=== PATIENT | male | born 1955 | race Native Hawaiian/Other Pacific Islander ===

== ENCOUNTER 2020-12-14 10:38 | Inpatient (IN) | payer OTHER ==
[~2020-12-14] VITALS: Ht 167.6 cm; Wt 69.9 kg
--- NOTE | 2020-12-14 10:51 | NUR ---
Pt BIB [facility], reports pt has generalized weakness x 2 days. Pt c/o severe weakness, diarrhea loss of appitite and a slight cough x 2 days. Pt denies CP, SOB, n/v, no other complaints, no distress noted.
[2020-12-14] MEDS ORDERED: IV NORMAL SALINE 1000 ML BAG IV ONE (11:00)
[2020-12-14 11:48] LABS: BASOPHILS % (AUTO) 0.3 % (0.0-2.0); EOSINOPHILS % (AUTO) 0.2 % (0.0-7.0); HEMATOCRIT 43.6 % (36.7-47.1); HEMOGLOBIN 14.7 g/dL (12.5-16.3); LYMPHOCYTES # (AUTO) 0.5 K/uL (20.0-40.0); LYMPHOCYTES % (AUTO) 15.4 % (20.5-51.5); MEAN CORPUSCULAR HEMOGLOBIN 33.9 uug (23.8-33.4); MEAN CORPUSCULAR HGB CONC 34 g/dL (32.5-36.3); MEAN CORPUSCULAR VOLUME 100.9 fL (73.0-96.2); MONOCYTES # (AUTO) 0.5 K/uL (2.0-10.0); MONOCYTES % (AUTO) 13.5 % (0.0-11.0); NEUTROPHILS # (AUTO) 2.4 K/uL (1.8-8.9); NEUTROPHILS % (AUTO) 70.6 % (38.5-71.5); PLATELET COUNT (AUTO) 96 K/uL (152-348); RED BLOOD CELL COUNT(AUTO) 4.33 MIL/uL (4.06-5.63); WHITE BLOOD COUNT (AUTO) 3.4 K/uL (3.6-10.2)
[2020-12-14 11:53] LABS: BILIRUBIN,DIRECT 0.2 mg/dL (0.0-0.2); BILIRUBIN,TOTAL 0.6 mg/dL (0.2-1.0); TOTAL PROTEIN, SERUM 6.5 g/dL (6.4-8.2)
--- NOTE | 2020-12-14 11:59 | NUR ---
Pt is very hard on which to start an IV, 2 RN's & 5 attempts.
[2020-12-14 12:00] LABS: CREATININE 12.4 mg/dL (0.6-1.3)
[2020-12-14] MEDS ORDERED: PRAM0.253 PO (12:17)
[2020-12-14] MEDS ORDERED: LISI20TA30 PO (12:17)
[2020-12-14] MEDS ORDERED: SEVE800T8 PO (12:17)
[2020-12-14] MEDS ORDERED: LEVO125T8 PO (12:17)
[2020-12-14] MEDS ORDERED: AMLO10TA59 PO (12:17)
[2020-12-14] MEDS ORDERED: HYDR4TAB57 PO (12:17)
[2020-12-14] MEDS ORDERED: ATOR10TA PO (12:17)
[2020-12-14] MEDS ORDERED: GABA-532 PO (12:17)
[2020-12-14] MEDS ORDERED: CYAN-51 PO (12:17)
--- NOTE | 2020-12-14 12:42 | NUR ---
Dr Paul spoke to [facility]
--- NOTE | 2020-12-14 12:50 | NUR ---
Pt is Authorized by Sebastian BARAJAS, to be admitted to [facility]. DR Paul spoke to admitting Dr Mar. Pt to be admitted to [facility].
--- NOTE | 2020-12-14 13:14 | NUR ---
Pt sleeping in bed, no distress noted.
--- NOTE | 2020-12-14 15:12 | NUR ---
Called report to SANTHOS[facility] Maxwell
[2020-12-14] MEDS ORDERED: ONDANSETRON 4 MG/2 ML VIAL IV PRN (15:30)
[2020-12-14] MEDS ORDERED: ACETAMINOPHEN 325 MG TABLET PO PRN (15:30)
[2020-12-14] MEDS ORDERED: TEMAZEPAM 15 MG CAPSULE PO PRN (15:30)
[2020-12-14] MEDS ORDERED: HYDROMORPHONE HCL 2 MG TABLET PO PRN (15:30)
[2020-12-14 16:00] VITALS: BP 190/86
--- NOTE | 2020-12-14 16:45 | NUR ---
Received report from Niles, ER nurse. Transferred to 2nd floor at 1615. PT is in bed, awake AO X 4. No complain of pain noted at this time. No acute distress or SOB. Needs 1 person assist D/T weakness. PT is able to go the toilet. 1 loose BM noted. Returned PT back to bed with safety measures, call light within reach, bed low and lock.
[2020-12-14] MEDS ORDERED: SEVELAMER CARBONATE PO SCH (17:00)
[2020-12-14] MEDS ORDERED: LISINOPRIL 20 MG TABLET PO ONE (17:15)
[2020-12-14] MEDS ORDERED: SEVELAMER CARBONATE 800 MG TABLET PO ONE (18:00)
--- NOTE | 2020-12-14 18:30 | NUR ---
PT was seen by Dr. Santizo. Notified MD about increase HR 145. Administered Lisinopril per MD's order. Received new orders and nurse carried out. PT states no pain at this time. PT in bed with safety measures, call light within reach, bed low and lock. Will endorse to hospice art therapist nurse.
[2020-12-14 20:00] VITALS: BP 137/67
[2020-12-14] MEDS: GABAPENTIN 100 MG CAPSULE PO SCH (21:06)
[2020-12-14] MEDS: ATORVASTATIN 10 MG TABLET PO SCH (21:06)
[2020-12-14] MEDS: DOCUSATE SODIUM 100 MG CAPSULE PO SCH (21:06)
[2020-12-14] MEDS: PRAMIPEXOLE 0.25 MG TABLET PO SCH (21:07)
[2020-12-14 21:09] LABS: BAND % (MANUAL) 1 % (0-10); LYMPHOCYTES % (MANUAL) 20 % (20-40); MONOCYTES % (MANUAL) 7 % (2-10); NEUTROPHILS % (MANUAL) 72 % (42-75)
[2020-12-14] MEDS ORDERED: SODIUM POLYSTYRENE SULFONATE 15 G/60 ML LIQUID UDC PO ONE (22:15)
[2020-12-15] VITALS: BP 156/86
[2020-12-15 04:00] VITALS: BP 100/61
[2020-12-15] MEDS ORDERED: PANTOPRAZOLE SODIUM 40 MG TABLET.DR PO SCH (07:00)
--- NOTE | 2020-12-15 07:55 | NUR ---
Received PT in bed, awake AO X 4 with safety measures. Denies any pain at this time. No acute distress or SOB noted. PT stated that they didn't slept well last night. Nurse fulfilled PT needs. PT talking without any difficulty. Safety measures provided, call light within reach, bed low and lock. Will continue to monitor.
[2020-12-15 08:12] LABS: BASOPHILS % (AUTO) 0.5 % (0.0-2.0); EOSINOPHILS % (AUTO) 0.3 % (0.0-7.0); HEMATOCRIT 48.4 % (36.7-47.1); HEMOGLOBIN 16.4 g/dL (12.5-16.3); LYMPHOCYTES # (AUTO) 0.7 K/uL (20.0-40.0); LYMPHOCYTES % (AUTO) 18.5 % (20.5-51.5); MEAN CORPUSCULAR HEMOGLOBIN 34.1 uug (23.8-33.4); MEAN CORPUSCULAR HGB CONC 34 g/dL (32.5-36.3); MEAN CORPUSCULAR VOLUME 100.5 fL (73.0-96.2); MONOCYTES # (AUTO) 0.5 K/uL (2.0-10.0); MONOCYTES % (AUTO) 12.7 % (0.0-11.0); NEUTROPHILS # (AUTO) 2.6 K/uL (1.8-8.9); PLATELET COUNT (AUTO) 106 K/uL (152-348); RED BLOOD CELL COUNT(AUTO) 4.82 MIL/uL (4.06-5.63); WHITE BLOOD COUNT (AUTO) 3.9 K/uL (3.6-10.2)
[2020-12-15 08:56] LABS: BILIRUBIN,TOTAL 0.7 mg/dL (0.2-1.0); MAGNESIUM 2.7 mg/dL (1.8-2.4); PHOSPHOROUS 5.4 mg/dL (2.5-4.9); TOTAL PROTEIN, SERUM 7.1 g/dL (6.4-8.2)
[2020-12-15] MEDS ORDERED: ASPIRIN 81 MG TAB.CHEW PO SCH (09:00)
[2020-12-15] MEDS ORDERED: DEXAMETHASONE SOD PHOSPHATE 4 MG INJ IV SCH (09:00)
[2020-12-15] MEDS: AMLODIPINE 10 MG TABLET PO SCH (09:00)
[2020-12-15] MEDS ORDERED: LISINOPRIL 20 MG TABLET PO SCH (09:00)
[2020-12-15 09:05] LABS: POTASSIUM 6.2 mmol/L (3.5-5.1)
[2020-12-15 09:06] LABS: CREATININE 15.4 mg/dL (0.6-1.3)
[2020-12-15] MEDS: LEVOTHYROXINE SODIUM 125 MCG TABLET PO SCH (09:25)
[2020-12-15] MEDS: CYANOCOBALAMIN 1,000 MCG TABLET PO SCH (09:25)
[2020-12-15 09:38] LABS: THYROID STIMULATING HORMONE 0.073 mIU/mL (0.358-3.740)
[2020-12-15 11:12] VITALS: BP 114/94
[2020-12-15] MEDS: SEVELAMER CARBONATE 800 MG TABLET PO SCH ×2 (12:00→17:48)
[2020-12-15 15:13] VITALS: BP 119/89
--- NOTE | 2020-12-15 18:19 | NUR ---
PT in bed, awake AO X 4 with safety measures. Denies any pain at this time. No acute distress or SOB noted. PT received dialysis @ 1245PM and concluded @ 1445 with 1.1 litters. Nurse provided snack and juices. PT stated that they feel good and content. PT talking without any difficulty. Ambulates to toilet without any exertion. Safety measures provided, call light within reach, bed low and lock. Will endorse to caustic cresylate shift superintendent nurse.
[2020-12-15 20:04] VITALS: BP 121/67
[2020-12-15] MEDS: GABAPENTIN 100 MG CAPSULE PO SCH (20:19)
[2020-12-15] MEDS: PRAMIPEXOLE 0.25 MG TABLET PO SCH (20:19)
[2020-12-15] MEDS: DOCUSATE SODIUM 100 MG CAPSULE PO SCH (20:19)
[2020-12-15] MEDS: ATORVASTATIN 10 MG TABLET PO SCH (20:19)
[2020-12-16 00:04] VITALS: BP 89/35
[2020-12-16 04:04] VITALS: BP 80/42
--- NOTE | 2020-12-16 07:30 | NUR ---
Received patient in bed awake, alert and oriented times 4. Patient is a dialysis patient. 2 fistula the right one is patent. Safety precautions are in place. Will continue to monitor.
[2020-12-16 07:33] LABS: BASOPHILS % (AUTO) 0.1 % (0.0-2.0); EOSINOPHILS % (AUTO) 0.1 % (0.0-7.0); HEMATOCRIT 38.9 % (36.7-47.1); HEMOGLOBIN 13.4 g/dL (12.5-16.3); LYMPHOCYTES # (AUTO) 0.7 K/uL (20.0-40.0); LYMPHOCYTES % (AUTO) 14.7 % (20.5-51.5); MEAN CORPUSCULAR HEMOGLOBIN 34.3 uug (23.8-33.4); MEAN CORPUSCULAR HGB CONC 34 g/dL (32.5-36.3); MEAN CORPUSCULAR VOLUME 99.6 fL (73.0-96.2); MONOCYTES # (AUTO) 0.4 K/uL (2.0-10.0); MONOCYTES % (AUTO) 8.3 % (0.0-11.0); NEUTROPHILS # (AUTO) 3.6 K/uL (1.8-8.9); NEUTROPHILS % (AUTO) 76.8 % (38.5-71.5); PLATELET COUNT (AUTO) 96 K/uL (152-348); WHITE BLOOD COUNT (AUTO) 4.7 K/uL (3.6-10.2)
[2020-12-16 07:40] LABS: MAGNESIUM 2.2 mg/dL (1.8-2.4)
[2020-12-16] MEDS: SEVELAMER CARBONATE 800 MG TABLET PO SCH ×4 (08:32→18:07)
[2020-12-16] MEDS: CYANOCOBALAMIN 1,000 MCG TABLET PO SCH (08:32)
[2020-12-16] MEDS: PANTOPRAZOLE SODIUM 40 MG TABLET.DR PO SCH (08:33)
[2020-12-16] MEDS: LEVOTHYROXINE SODIUM 125 MCG TABLET PO SCH (08:33)
[2020-12-16] MEDS: AMLODIPINE 10 MG TABLET PO SCH (08:44)
[2020-12-16 13:05] VITALS: BP 138/68
--- NOTE | 2020-12-16 14:20 | NUR ---
Patient refused medication after opening one of the medication. Will return the remainder back to the [facility].
[2020-12-16 16:44] VITALS: BP 128/59
--- NOTE | 2020-12-16 19:00 | NUR ---
Patient is resting in bed. No sign of distress noted. Gave all medications as ordered. Safety precautions are in place. Will endorse to oncoming nurse.
--- NOTE | 2020-12-16 19:30 | NUR ---
Received patient lying in bed. AAOx4. In no acute distress. Denies any pain or SOB. O2 sat at 98% on RA. NSR on tele at 66/min. Left upper arm midline intact and patent. COVID precaution initiated. Safety measure initiated and call medina within reached.
[2020-12-16] MEDS: GABAPENTIN 100 MG CAPSULE PO SCH (20:37)
[2020-12-16] MEDS: ATORVASTATIN 10 MG TABLET PO SCH (20:37)
[2020-12-16] MEDS: PRAMIPEXOLE 0.25 MG TABLET PO SCH (20:37)
[2020-12-16] MEDS: DOCUSATE SODIUM 100 MG CAPSULE PO SCH (20:37)
[2020-12-16 22:09] VITALS: BP 109/40
--- NOTE | 2020-12-16 23:10 | NUR ---
Patient picked up by maintenance mechanic technician for CT scan.
--- NOTE | 2020-12-16 23:37 | NUR ---
Patient back to his room from CT.
[2020-12-17 00:55] VITALS: BP_SYST 107; BP_DIAS 31; BP_DIAS 61
[2020-12-17 04:00] VITALS: BP 110/73
--- NOTE | 2020-12-17 06:27 | NUR ---
No significant event throughout the shift. Remains AAOx4. In no acute distress. Denies any pain or SOB. O2 sat at 99% on RA. NSR on tele at 64/min. Left upper arm midline intact and patent. Needs attended to and met. COVID precaution initiated. Safety measure maintained and call medina within reached.
[2020-12-17] MEDS ORDERED: LEVOTHYROXINE SODIUM 100 MCG TABLET PO SCH (07:00)
--- NOTE | 2020-12-17 07:30 | NUR ---
Received patient in bed awake, alert and oriented times 4. Patient is currently on room air with no sign of distress noted at this time. Patient denies any pain. Patient is a dialysis patient. 2 fistula the right one is patent. Safety precautions are in place. Will continue to monitor.
[2020-12-17] MEDS: SEVELAMER CARBONATE 800 MG TABLET PO SCH ×3 (08:03→17:12)
[2020-12-17] MEDS: CYANOCOBALAMIN 1,000 MCG TABLET PO SCH (08:03)
[2020-12-17] MEDS: PANTOPRAZOLE SODIUM 40 MG TABLET.DR PO SCH (08:03)
[2020-12-17] MEDS: AMLODIPINE 10 MG TABLET PO SCH (08:13)
[2020-12-17 10:21] LABS: BASOPHILS # (AUTO) 0.1 K/uL (0.0-8.0); EOSINOPHILS # (AUTO) 0.1 K/uL (0.0-0.7); EOSINOPHILS % (AUTO) 1.2 % (0.0-7.0); HEMATOCRIT 40.7 % (36.7-47.1); HEMOGLOBIN 13.8 g/dL (12.5-16.3); LYMPHOCYTES # (AUTO) 0.6 K/uL (20.0-40.0); LYMPHOCYTES % (AUTO) 12.9 % (20.5-51.5); MEAN CORPUSCULAR HGB CONC 34 g/dL (32.5-36.3); MEAN CORPUSCULAR VOLUME 100.1 fL (73.0-96.2); MONOCYTES # (AUTO) 0.3 K/uL (2.0-10.0); MONOCYTES % (AUTO) 5.7 % (0.0-11.0); NEUTROPHILS # (AUTO) 3.6 K/uL (1.8-8.9); NEUTROPHILS % (AUTO) 78.2 % (38.5-71.5); PLATELET COUNT (AUTO) 92 K/uL (152-348); RED BLOOD CELL COUNT(AUTO) 4.07 MIL/uL (4.06-5.63); WHITE BLOOD COUNT (AUTO) 4.5 K/uL (3.6-10.2)
[2020-12-17 10:26] LABS: MAGNESIUM 2.4 mg/dL (1.8-2.4); PHOSPHOROUS 5.7 mg/dL (2.5-4.9); POTASSIUM 4.2 mmol/L (3.5-5.1)
[2020-12-17 10:40] LABS: CREATININE 14.1 mg/dL (0.6-1.3)
[2020-12-17 12:29] VITALS: BP 135/78
[2020-12-17] MEDS ORDERED: LEVO100T10 PO (13:43)
[2020-12-17] MEDS ORDERED: ATOR10TA PO (13:43)
[2020-12-17 16:36] VITALS: BP_SYST 145; BP_SYST 89; BP_DIAS 43; BP_DIAS 95
--- NOTE | 2020-12-17 18:30 | NUR ---
Took pictures and change dressing on right hand. Patient also signs discharge paperwork and belonging list. Discharge completed in the computer.
--- NOTE | 2020-12-17 19:36 | NUR ---
Patient is resting in bed. No sign of distress noted. Patient denies any pain. All medications given as ordered. Safety precautions are in place. Will endorse to the oncoming nurse.
--- NOTE | 2020-12-17 20:10 | NUR ---
Pt received awake and alert in bed. Denies pain or SOB at this time. On RA sating at 97%. Pt is being discharged to [facility], report given to Keli Hampton RN. All belongings accounted for. Pt transported by [facility] and left via gurney in stable condition.
[2020-12-17] MEDS: DOCUSATE SODIUM 100 MG CAPSULE PO SCH (20:14)
[2020-12-17] MEDS: GABAPENTIN 100 MG CAPSULE PO SCH (20:14)
[2020-12-17] MEDS: ATORVASTATIN 10 MG TABLET PO SCH (20:14)
[2020-12-17] MEDS: PRAMIPEXOLE 0.25 MG TABLET PO SCH (20:14)
[2020-12-19 16:02] LABS: HEPATITIS B SURFACE AB REACTIVE; HEPATITIS B SURFACE AG NEGATIVE
== END 2020-12-17 20:15 | DRG 177 ==
LOC: ER 10:38 → TELE 15:40
PROVIDERS: ADMIT Internal Medicine; ATTEND Internal Medicine
PROC: 05H633Z Insertion of Infusion Device into Left Subclavian Vein, Percutaneous Approach (ICD-10-PCS; 2020-12-14)
PROC: B547ZZA Ultrasonography of Left Subclavian Vein, Guidance (ICD-10-PCS; 2020-12-14)
PROC: 5A1D70Z Performance of Urinary Filtration, Intermittent, Less than 6 Hours Per Day (ICD-10-PCS; principal; 2020-12-15)
DX: U07.1 COVID-19 (principal); J12.82 Pneumonia due to coronavirus disease 2019; N18.6 End stage renal disease; I21.A1 Myocardial infarction type 2; D68.69 Other thrombophilia; I13.2 Hypertensive heart and chronic kidney disease with heart failure and with stage 5 chronic kidney disease, or end stage renal disease; Z99.2 Dependence on renal dialysis; Z66 Do not resuscitate; E03.9 Hypothyroidism, unspecified; I25.10 Atherosclerotic heart disease of native coronary artery without angina pectoris; K21.9 Gastro-esophageal reflux disease without esophagitis; M10.9 Gout, unspecified; I10 Essential (primary) hypertension; M81.0 Age-related osteoporosis without current pathological fracture; I50.9 Heart failure, unspecified; E87.5 Hyperkalemia; E78.5 Hyperlipidemia, unspecified; E05.90 Thyrotoxicosis, unspecified without thyrotoxic crisis or storm; R53.1 Weakness; Y93.9 Activity, unspecified; Z91.81 History of falling; X58.XXXA Exposure to other specified factors, initial encounter; S60.051A Contusion of right little finger without damage to nail, initial encounter; S60.041A Contusion of right ring finger without damage to nail, initial encounter; Y92.89 Other specified places as the place of occurrence of the external cause; M19.90 Unspecified osteoarthritis, unspecified site; W19.XXXA Unspecified fall, initial encounter; D64.9 Anemia, unspecified
CPT/HCPCS: 36415; 70030-TC; 71045; 73130; 73200; 83605; 83690; 83735; 84100; 84443; 85025; 85730; 86706; 87340; 90937; 93005; A4663; G0378; J1100; J7030